=== PATIENT | male | born 1950 | race African-American/Black ===

== ENCOUNTER 2017-05-31 09:56 | Emergency (ER) | payer MEDICARE, MEDICAID ==
[~2017-05-31] VITALS: Ht 177.8 cm; Wt 70.0 kg
[~2017-05-31 09:56] MED LIST: DOCU-138 PO; FENT1PAT4 TP; FERR-63 PO; GABA-531 PO; TAMS0.4C31 PO; TRAM50TA3 PO
[2017-05-31] MEDS ORDERED: HYDROMORPHONE HCL 4MG TABLET PO ONE (10:15)
[2017-05-31 11:46] VITALS: BP 119/76
== END 2017-05-31 11:46 | disposition home or self-care (01) ==
LOC: ER 10:07
DX: G89.3 Neoplasm related pain (acute) (chronic) (principal); C25.9 Malignant neoplasm of pancreas, unspecified; R10.9 Unspecified abdominal pain
CPT/HCPCS: 99283